=== PATIENT | female | born 1935 | race Caucasian/White ===

== ENCOUNTER 2018-05-25 07:21 | Day surgery (SDC) | payer OTHER ==
[~2018-05-25] VITALS: Ht 152.4 cm; Wt 79.2 kg
[~2018-05-25 07:21] MED LIST: BETA1 PO; CALCAVITDA PO; CEPH500 PO; CHOL10002 PO; FISH1000 PO; GARLIC; HYDACE5 PO; Hair, Skin & N1 EACH PO; LISI5 PO; LOVA20 PO; PRED20 PO; VITNEPH PO
[2018-05-25] MEDS ORDERED: Omeprazole20 M1 PO (08:33)
[2018-05-25] MEDS ORDERED: AMLO10 PO (08:34)
[2018-05-25] MEDS ORDERED: CARV6.25 PO (08:34)
[2018-05-25] MEDS ORDERED: Flovent Diskus50 MCG INH (08:36)
== END 2018-05-25 10:30 | disposition home or self-care (01) ==
LOC: ORSCSDS 07:21
PROVIDERS: Ophthalmology
PROC: 08SR0ZZ Reposition Left Lower Eyelid, Open Approach (ICD-10-PCS; principal; 2018-05-25 08:30)
DX: H02.035 Senile entropion of left lower eyelid (principal); E78.00 Pure hypercholesterolemia, unspecified; E16.2 Hypoglycemia, unspecified; Z79.899 Other long term (current) drug therapy; I12.9 Hypertensive chronic kidney disease with stage 1 through stage 4 chronic kidney disease, or unspecified chronic kidney disease; N18.3 Chronic kidney disease, stage 3 (moderate); E78.5 Hyperlipidemia, unspecified; Z87.891 Personal history of nicotine dependence
CPT/HCPCS: J7040